=== PATIENT | female | born 1985 | race Caucasian/White ===

== ENCOUNTER 2020-12-23 13:43 | Emergency (ER) | payer OTHER, SELFPAY ==
[2020-12-23 14:37] VITALS: BP 113/68; PULSE 90; RESP 18; TEMP 36.6; O2SAT 99; BMI 26.5
[2020-12-23] MEDS: Ketorolac Tromethamine 15 MG/ML VIAL IM (15:33)
[2020-12-23] MEDS: Lidocaine 4 % Patch ADH..PATCH 1 PATCH TRANSDERMA (15:33)
--- NOTE | 2020-12-23 15:52 | ED_ITS ---
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 Denies direct injury/trauma or falls, however reports doing a lot of strenuous movements. Denies associated numbness, tingling, weakness, headache, urinary incontinence/retention <HOLLY Holguin Last Filed: 12/23/20 16:00> MD complaint: neck pain <HOLLY Holguin Last Filed: 12/23/20 16:00> Related Data Home Medications: Previous Rx's Medication Instructions Recorded acetaminophen 500 mg tablet 500 mg PO Q6H PRN #20 tab 12/23/20 (Tylenol Extra Strength) cyclobenzaprine 5 mg tablet 5 mg PO Q8H PRN 5 Days #14 tab 12/23/20 lidocaine 5 % topical patch 1 patch TOPICAL DAILY PRN #30 ea 12/23/20 (Lidoderm) MDD remove after 12 hours naproxen 500 mg tablet 500 mg PO BID PRN 10 Days #20 tab 12/23/20 <HOLLY Holguin Last Filed: 12/23/20 16:00> Allergies/Adverse Reactions: Allergies Allergy/AdvReac Type Severity Reaction Status Date / Time No Known Allergies Allergy Verified 12/23/20 15:34 <HOLLY Holguin Last Filed: 12/23/20 16:00> Review of Systems Review of Systems: Constitutional: No Fever, No Chills ENT/Mouth: No Ear Pain, No Nasal Congestion, No sore throat, No Swallowing Difficulty Cardiovascular: No Chest Pain, No SOB Respiratory: No Cough, No Sputum, No Wheezing Gastrointestinal: No Nausea, No Vomiting, No Diarrhea, No Constipation, No Abdominal pain Genitourinary:No Dysuria, No Urinary Incontinence/retention, No Flank Pain Musculoskeletal: + joint pain, No Myalgias, No Joint Swelling Skin: No Skin Lesions, No rash Neuro: No Weakness, No Numbness, No Paresthesias <HOLLY Holguin - Last Filed: 12/23/20 16:00> Yes all other systems are reviewed and are negative <HOLLY Holguin - Last Filed: 12/23/20 16:00> Neurologic: Denies Sensory deficit (Neuro) <HOLLY Holguin - Last Filed: 12/23/20 16:00> [facility] Past Medical History Attestation statement: The following information was validated with the patient. <HOLLY Holguin - Last Filed: 12/23/20 16:00> Medical History: Medical History (Updated 12/24/20 @ 00:01 by Yao Latham) No known health problems <HOLLY Holguin - Last Filed: 12/23/20 16:00> Social History Social History: Social History Advance Directives: No Advance Directives Information Provided: No Patient : No <HOLLY Holguin - Last Filed: 12/23/20 16:00> Physical Exam Vital Signs: Vital Signs: Last Vital Signs Temp 98 F 12/23/20 14:37 Pulse 90 12/23/20 14:37 Resp 17 12/23/20 15:59 BP 113/68 12/23/20 14:37 Pulse Ox 99 12/23/20 14:37 Body Mass Index 26.5 <HOLLY Holguin - Last Filed: 12/23/20 16:00> Vital Signs: Last Vital Signs Temp 98 F 12/23/20 14:37 Pulse 90 12/23/20 14:37 Resp 17 12/23/20 15:59 BP 113/68 12/23/20 14:37 Pulse Ox 99 12/23/20 14:37 Body Mass Index 26.5 <Maikel Denson MD - Last Filed: 12/24/20 01:57> Const: General: cooperative, healthy appearing and no acute distress <Atiya Morales [facility] Last Filed: 12/23/20 16:00> Orientation/consciousness: patient oriented x3 <Atiya Morales [facility] Last Filed: 12/23/20 16:00> Limitations: no limitations <Atiya Morales [facility] Last Filed: 12/23/20 16:00> HENMT: Head: Yes normal to inspection <Atiya Morales MD - Last Filed: 12/23/20 16:00> Ears: hearing grossly normal bilaterally <Atiya Morales [facility] Last Filed: 12/23/20 16:00> General nose exam: Normal external nose present <Atiya Morales [facility] Last Filed: 12/23/20 16:00> Face and sinus: Yes normal facial exam <Atiya Morales [facility] Last Filed: 12/23/20 16:00> Eyes: General: appearance normal, both eyes and all related structures <Atiya Morales MD - Last Filed: 12/23/20 16:00> EOM: EOMs intact bilaterally <Atiya Morales [facility] Last Filed: 12/23/20 16:00> Neck: Other: No midline cervical spinous tenderness/step-off or deformity. + left-sided paraspinal/MSK and left-sided trapezius muscle tenderness to palpation, reproducing subjective complaint <Atiya Morales [facility] Last Filed: 12/23/20 16:00> Neck: Yes normal visual inspection <Atiya Morales [facility] Last Filed: 12/23/20 16:00> Resp: Effort & Inspection: normal respiratory effort and no respiratory distress <Atiay Morales [facility] Last Filed: 12/23/20 16:00> Cardio: Rate: regular rate <Atiya Morales [facility] Last Filed: 12/23/20 16:00> Peripheral pulses: radial pulses present <Atiya Morales MD - Last Filed: 12/23/20 16:00> Back/Spine/Pelvis: Other: No midline thoracic/lumbar spinous tenderness/step- off or deformity <Atiya Morales [facility] Last Filed: 12/23/20 16:00> Skin: Rashes: no rashes <Atiya Morales MD - Last Filed: 12/23/20 16:00> Wounds: no wounds <HOLLY Holguin - Last Filed: 12/23/20 16:00> Neuro: Other: No saddle anesthesia. Ambulating with steady gait <HOLLY Holguin - Last Filed: 12/23/20 16:00> General: patient oriented x3, gait normal, tone normal, moves all extremities and no focal motor deficits <HOLLY Holguin - Last Filed: 12/23/20 16:00> Gait exam (Neuro): Normal gait present <HOLLY Holguin - Last Filed: 12/23/20 16:00> Motor exam (neuro): 5/5 motor strength present throughout <HOLLY Holguin - Last Filed: 12/23/20 16:00> Sensory Exam: No Sensory deficit (Neuro) <HOLLY Holguin - Last Filed: 12/23/20 16:00> Extrem: General: Yes normal to inspection <HOLLY Holguin - Last Filed: 12/23/20 16:00> MDM - Neck Pain/Injury MDM Narrative Medical decision making narrative: 34-year-old female with no significant past medical history presenting to the ED complaining of left-sided neck pain x2 days s/p helping brother do tree work on , and 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 On exam VSS, NAD/well-appearing, physical exam as above. No midline spinous ten derness throughout, no red flag symptoms. Likely MSK pain/strain. Low concern for fracture, dislocation, or cord compression <HOLLY Holguin - Last Filed: 12/23/20 16:00> Medical Records Attestation: I reviewed the patient's medical records. <HOLLY Holguin - Last Filed: 12/23/20 16:00> Discharge Plan Discharge Clinical Impression: Strain of neck muscle <HOLLY Holguin Last Filed: 12/23/20 16:00> Patient Disposition: Home, Self-Care <HOLLY Holguin - Last Filed: 12/23/20 16:00> Instructions: Cervical Strain (ED) <HOLLY Holguin - Last Filed: 12/23/20 16:00> Additional Instructions: Your pain is likely musculoskeletal Flexeril is a muscle relaxer, take at night as it makes you drowsy, do not drive, drink alcohol, or operate machinery while taking it Naproxen as an anti-inflammatory / pain medication, take with food Lidoderm patches are numbing patches, apply to painful area In addition take Tylenol at home If symptoms persist or worsen, pain becomes unbearable, you developed urinary retention or incontinence, or weakness return to the ED <HOLLY Holguin - Last Filed: 12/23/20 16:00> Prescriptions: New acetaminophen [Tylenol Extra Strength] 500 mg tablet 500 mg PO Q6H PRN (Reason: pain or fever) Qty: 20 RF: 0 lidocaine [Lidoderm] 5 % adhesive patch,medicated 1 patch topical DAILY MDD remove after 12 hours PRN (Reason: pain) Qty: 30 RF: 0 naproxen 500 mg tablet 500 mg PO BID PRN (Reason: pain) 10 Days Qty: 20 RF: 0 cyclobenzaprine 5 mg tablet 5 mg PO Q8H PRN (Reason: pain (scale score 7-10)) 5 Days Qty: 14 RF: 0 <HOLLY Holguin - Last Filed: 12/23/20 16:00> Referrals: Physician,None [Primary Care Provider] - 2 days <HOLLY Holguin - Last Filed: 12/23/20 16:00> Stand Alone Forms: Work/School Release <HOLLY Holguin - Last Filed: 12/23/20 16:00> Interventions: ED Discharge Assessment Last Done: 12/23/20 16:01 <HOLLY Holguin - Last Filed: 12/23/20 16:00> Discharge Date/Time: 12/23/20 16:02 <HOLLY Holguin - Last Filed: 12/23/20 16:00>
[2020-12-23 15:59] VITALS: RESP 17
== END 2020-12-23 16:02 | disposition home or self-care (01) ==
PROVIDERS: Emergency Provider Emergency Medicine
DX: M54.2 Cervicalgia (principal); Z79.899 Other long term (current) drug therapy
CPT/HCPCS: 96372; 99283; 99284; J1885